=== PATIENT | male | born 1950 ===

== ENCOUNTER 2023-05-28 09:46 | Outpatient (CLI) | payer BC ==
--- NOTE | 2023-05-28 13:20 | CT Report ---
PROCEDURE: Lumbar Spine WO INDICATIONS: SP LUMBAR FUSION TECHNIQUE: Noncontrast 3 mm thick sections acquired from the T12 level to the sacrum. Sagittal and coronal refo rmats were constructed. For radiation dose reduction, the following was used: automated exposure co ntrol, adjustment of mA and/or kV according to patient size. COMPARISON: None. FINDINGS: Image quality: Excellent. Bones: Patient is status post posterior fixation and discectomy from L4-5. There is loss of the expec bright lumbar lordosis. No compression deformities. Degenerative changes are present throughout the lumb ar spine including intervertebral disc space narrowing, multilevel vacuum disc phenomenon, osteophyto sis and facet sclerosis. No spondylolisthesis. No spondylolysis. T12-L1: Moderate disc desiccation and height loss. Broad based disc bulge. Trace vacuum disc phenome non. No canal stenosis. No foraminal stenosis. L1-L2: Severe disc desiccation and height loss. Broad based disc bulge. Vacuum disc phenomenon. Mi ld canal stenosis. Mild bilateral foraminal stenosis. L2-L3: Severe disc desiccation and height loss. Broad based disc bulge. Vacuum disc phenomenon. Mo derate facet ligamentum flavum hypertrophy. Mild canal stenosis. Mild bilateral foraminal stenosis. L3-L4: Severe disc desiccation and height loss. Broad based disc bulge. Severe facet ligamentum fla vum hypertrophy. Moderate canal stenosis. Moderate bilateral foraminal stenosis. L4-L5: Posterior fusion, discectomy, and laminectomy. No canal stenosis. Moderate bilateral foramin al stenosis. L5-S1: Severe disc desiccation and height loss. No canal stenosis. Moderate to severe bilateral for aminal stenosis. Soft tissues: No retroperitoneal masses or hematomas. Visualized aorta is normal in caliber. IMPRESSION: 1. Postoperative changes above. 2. Multilevel severe disc desiccation, height loss, and vacuum disc phenomenon. 3. Moderate to severe bilateral foraminal stenosis at L5-S1 and moderate bilateral foraminal stenosis at L4-5. 4. Mild canal stenosis at L1-2 and L2-3 and moderate canal stenosis at L3-4. Reviewed by: Nasrin Santos MD on 05/28/2023 1:19 PM PST Approved by: Nasrin Santos MD on 05/28/2023 1:19 PM PST Station ID: [id number]
== END 2023-05-28 09:47 | disposition home or self-care (01) ==
LOC: DI 09:46
DX: Z98.1 Arthrodesis status (principal); M51.36 Other intervertebral disc degeneration, lumbar region; M48.061 Spinal stenosis, lumbar region without neurogenic claudication